=== PATIENT | female | born 1995 | race Caucasian/White ===

== ENCOUNTER → 2022-05-03 11:23 | Outpatient (CLI) | payer BC, SELFPAY ==
[2022-05-03 12:01] LABS: Basophils # 0.2 K/mm3 (0-0.2); Basophils % 2.5 % (0.1-2.0); Eosinophils # 0.1 K/mm3 (0.0-0.4); Eosinophils % 1.4 % (0.1-12.0); Hematocrit 39.7 % (37.0-47.0); Hemoglobin 13.1 g/dL (12.2-16.2); Lymphocytes # 2.2 K/mm3 (0.7-4.5); Lymphocytes % 28.3 % (10-50); Mean Corpuscular HGB Conc 33.1 g/dL (31.8-35.4); Mean Corpuscular Hemoglobin 28.5 pg (27.0-31.2); Mean Corpuscular Volume 86.1 fl (81-99); Mean Platelet Volume 7.8 fl (7.4-10.4); Monocytes # 0.4 K/mm3 (0.1-1.0); Monocytes % 4.7 % (1.7-9.3); Neutrophils # 4.9 K/mm3 (1.8-7.8); Neutrophils % 63.1 % (37.0-80.0); Platelet Count 322 K/mm3 (142-424); Red Blood Count 4.61 M/mm3 (4.20-5.40); Red Cell Distribution Width 13.9 % (11.5-17.5); White Blood Count 7.8 K/mm3 (4.8-10.8)
[2022-05-03 12:25] LABS: HCG,Quantitative 4856 mIU/ml (0-5.42)
[2022-05-04 08:22] LABS: Hepatitis B Surface Antigen Negative (Negative); Hepatitis C Antibody 0.1 s/co ratio (0.0-0.9); Rubella Antibodies, IgG 8.47 index (Immune >0.99)
[2022-05-04 09:14] LABS: HIV Screen 4th Generation wRfx Non Reactive (Non Reactive)
[2022-05-04 13:12] LABS: Rapid Plasma Reagin Ab Titer Non Reactive (NonRea<1:1)
== END ==
PROVIDERS: PCP Family Medicine; Visit Provider Obstetrics & Gynecology
DX: Z34.90 Encounter for supervision of normal pregnancy, unspecified, unspecified trimester (principal)
CPT/HCPCS: 36415; 84702; 85025; 86592; 86703; 86762; 86850; 87340; 87380; G0432

== ENCOUNTER → 2022-05-10 12:56 | Outpatient (CLI) | payer BC, SELFPAY ==
[2022-05-10 15:42] LABS: HCG,Quantitative 30030 mIU/ml (0-5.42)
== END ==
PROVIDERS: PCP Family Medicine; Visit Provider Obstetrics & Gynecology
DX: Z34.90 Encounter for supervision of normal pregnancy, unspecified, unspecified trimester (principal)
CPT/HCPCS: 36415; 84702

== ENCOUNTER → 2022-05-17 12:50 | Outpatient (CLI) | payer BC, SELFPAY ==
--- NOTE | 2022-05-17 12:50 | US_ITS ---
FINAL REPORT CLINICAL HISTORY: dates FINDINGS: Sonographic images of the pelvis were obtained. A single, living intrauterine is noted. A yolk sac is present and measures 0.53 cm. [place] to rump length measures 1.04 cm which corresponds to 7 weeks 1 day gestation. Heartbeat is identified and measures 136 beats per minute. The right ovary is within normal limits. There is a left ovarian cyst. IMPRESSION: Single, living, intrauterine gestation with 7 weeks 1 day ultrasound age. Reviewed, Interpreted and Dictated by Nico Marx III, MD Transcribed by Mercy Wilder Authenticated and [facility]
== END ==
PROVIDERS: PCP Family Medicine; Visit Provider Obstetrics & Gynecology
DX: Z34.90 Encounter for supervision of normal pregnancy, unspecified, unspecified trimester (principal)
CPT/HCPCS: 76801

== ENCOUNTER 2022-06-21 11:47 | Emergency (ER) | payer BC, SELFPAY ==
[2022-06-21 12:12] VITALS: BP 101/56; PULSE 68; RESP 17; TEMP 36.7; O2SAT 98; BMI 32.9
--- NOTE | 2022-06-21 12:23 | HMH.EDUTC ---
[facility] Disposition Clinical Impression: Headache above the eye region Disposition: Home, Self-Care Condition on Discharge: Good Instructions: DI for Headache Additional Instructions: Have eye exam to make sure that you have not had any vision changes FOllow up with your OB for further treatment and evaluation Return if needed Straight to ER if any life threatening symptoms or worse headache of your life Referrals: Provider,Referral, [Primary Care Provider] - As needed Time of Disposition: 12:39 Medical Decision Making - Lamont Inquiry Pt receiving controlled substance: No Lamont was queried for this patient: No Vital Signs: 06/21/22 12:12 Temperature 98.1 F Temperature Source Oral Pulse Rate [Left] 68 Respiratory Rate 17 Blood Pressure [Right Arm] 101/56 L Blood Pressure Mean [Right Arm] 71 02 Sat by Pulse Oximetry 98 Medical Decision Narrative: Patient states that she has appointment with OBGYN this week but wanted to get her Vitals checked to see if her blood pressure could be causing her headaches that come and go Patient unsure of last eye exam Discussed transfer to the ED and she declined Discussed eye exam to rule out changes in vision that could cause headaches and patient agreed Patient states that she will continue to drink fluids to make sure that she is staying hydrated an schedule vision exam and follow up with her OB later this week [facility] HPI - General Stated complaint: ongoing BULLARD, nausea Time Seen by Provider: 06/21/22 12:24 Mode of Arrival: Ambulatory Source of Information: Patient Limitations: No Limitations Description of Symptoms (Recalled from Triage Doc. by RN): patient comes in for headache since 06/18. located on left hand side of head, into neck and behind left eye. patient is 12 weeks . tylenol has not helped. HEENT Symptoms (Recalled from RN notes): Yes Resp Symptoms (Recalled from RN notes): No Skin Symptoms (Recalled from RN notes): No MS Symptoms (Recalled from RN notes): No Functional Status (Recalled from RN notes): n/a - History of Present Illness Provider Complaint: Patient states that she has been having headache on and off for over a week States that she has been taking Tylenol and not helping much but will go away and then come back State that pain is on the left side of her head and goes behind ear States that she is 12wks OB States that she called her PCP and they would do tele visit but she wanted to get her vitals checked to make sure that her blood pressure was OK and her OB was out today so she came down here Denies vision disturbances denies worse headache of her life - Related Data Previous Rx's Medication Instructions Recorded ferrous sulfate 325 mg (65 mg 325 mg PO DAILY #30 tab 05/18/22 iron) tablet ondansetron 4 mg disintegrating 4 mg PO Q4H PRN #30 tab 05/18/22 tablet vits no.126-ferrous fum 1 tab PO DAILY #30 tab 05/18/22 28 mg iron-folic acid 800 mcg tablet Allergies Allergy/AdvReac Type Severity Reaction Status Date / Time No Known Allergies Allergy Verified 06/08/22 11:44 - Worker's Comp Is this a Worker's Comp case?: No [facility] History - Hepatitis A Screen Attestation statement:: This patient has been screened for Hepatitis A risk factors. I have reviewed the patient's past medical history: Yes - Social History Smoking Status: Never smoker Alcohol Intake: never Substance Use Type: denies use Occupational Status: unemployed Family Hx:: Heart Attack, Thyroid Disorder ROS Obtained: Yes All systems reviewed & no additional complaints, Yes Systems reviewed as appropriate & no additional complaints - Constitutional Constitutional: Reports system reviewed and no additional complaints, except as docu, Reports headache(s) - Eyes Eyes: Reports system reviewed and no additional complaints, except as docu, Denies blurry vision - ENT Ears, Nose, Mouth, and Throat: Reports system reviewed and no additional
[2022-06-21 12:44] VITALS: BP 101/56; PULSE 68; RESP 17; TEMP 36.7
== END 2022-06-21 12:47 | disposition home or self-care (01) ==
PROVIDERS: Emergency Provider Nurse Practitioner
DX: R51.9 Headache, unspecified (principal)
CPT/HCPCS: 99212; G0463

== ENCOUNTER 2022-07-17 21:25 | Emergency (ER) | payer BC, SELFPAY ==
[2022-07-17 21:25] VITALS: BP 112/69; PULSE 76; RESP 16; TEMP 36.8; O2SAT 100; BMI 32.9
[2022-07-17 22:30] VITALS: BP 112/67; PULSE 83; O2SAT 100
[2022-07-17 22:48] LABS: Basophils # 0.1 K/mm3 (0-0.2); Basophils % 0.8 % (0.1-2.0); Eosinophils # 0.1 K/mm3 (0.0-0.4); Eosinophils % 0.9 % (0.1-12.0); Hematocrit 42.3 % (37.0-47.0); Hemoglobin 12.9 g/dL (12.2-16.2); Lymphocytes # 2.2 K/mm3 (0.7-4.5); Lymphocytes % 20.1 % (10-50); Mean Corpuscular HGB Conc 30.5 g/dL (31.8-35.4); Mean Corpuscular Hemoglobin 28.2 pg (27.0-31.2); Mean Corpuscular Volume 92.4 fl (81-99); Mean Platelet Volume 8.4 fl (7.4-10.4); Monocytes # 0.5 K/mm3 (0.1-1.0); Neutrophils # 7.9 K/mm3 (1.8-7.8); Neutrophils % 73.2 % (37.0-80.0); Platelet Count 286 K/mm3 (142-424); Red Blood Count 4.58 M/mm3 (4.20-5.40); Red Cell Distribution Width 13.4 % (11.5-17.5); White Blood Count 10.8 K/mm3 (4.8-10.8)
--- NOTE | 2022-07-17 22:56 | PC.NURSE ---
FHT 150bpm
[2022-07-17 22:57] LABS: Alanine Aminotransferase 12 U/L (12-78); Albumin/Globulin Ratio 1.2 (1.1-1.8); Alkaline Phosphatase 64 U/L (38-126); Anion Gap 11.8 mEq/L (5-15); Aspartate Amino Transferase 30 U/L (14-36); Bilirubin,Total < 0.1 mg/dl (0.2-1.3); Blood Urea Nitrogen 4 mg/dl (7-17); Calcium 9.8 mg/dl (8.4-10.2); Carbon Dioxide 23 mmol/L (22.0-30.0); Chloride 107 mmol/L (98-107); Creatinine Clearance Estimated 366 mL/min (50-200); Estimated Glomerular Filt Rate 269 ml/min (>60); GFR (African American) 325 ML/MIN (>60); Globulin 3.4 g/dL (1.3-3.2); Glucose 99 mg/dl (74-100); Potassium 3.8 mmoL/L (3.5-5.1); Sodium 138 mmol/L (136-145); Total Protein,Serum 7.4 g/dl (6.3-8.2)
[2022-07-17 23:00] VITALS: BP 101/57; PULSE 72; O2SAT 100
[2022-07-17 23:30] VITALS: BP 109/71; PULSE 69; O2SAT 99
[2022-07-17 23:44] LABS: HCG,Quantitative 21722 mIU/ml (0-5.42)
--- NOTE | 2022-07-18 01:01 | HMH.EDPREG ---
ED Disposition Clinical Impression: Headache Qualifiers: Headache type: unspecified Headache chronicity pattern: acute headache Intractability: not intractable Qualified Code(s): R51.9 - Headache, unspecified Qualifiers: Weeks of gestation: 15 weeks Qualified Code(s): Z3A.15 - 15 weeks gestation of Disposition: Home, Self-Care Condition on Discharge: Good Instructions: DI for Headache Additional Instructions: call ob this am Referrals: Elinor Morgan MD [Primary Care Provider] - Ale Solomon MD [Staff Physician] - - Critical Care Critical Care Time: No Attestation: On 07/17/22, the high probability of a clinically significant, sudden or life threatening deterioration of the following system(s) required my full and direct attention, intervention and personal management. The time I documented below is in addition to time spent performing reported procedures but includes the following listed in this critical care notation. Medical Decision Making - Medical Records Medical records reviewed: Yes: I reviewed the patient's medical records. - Lamont Inquiry Pt receiving controlled substance: No Vital Signs: 07/17/22 21:25 07/17/22 22:30 07/17/22 23:00 Temperature 98.2 F Temperature Source Oral Pulse Rate 83 72 Pulse Rate [Left] 76 Respiratory Rate 16 Blood Pressure 112/67 101/57 L Blood Pressure [Right Arm] 112/69 Blood Pressure Mean [Right Arm] 83 02 Sat by Pulse Oximetry 100 100 100 Oxygen Delivery Method Room Air 07/17/22 23:30 07/18/22 01:16 Temperature 98.9 F Temperature Source Oral Pulse Rate 69 69 Pulse Rate [Left] Respiratory Rate 18 Blood Pressure 109/71 L 109/71 L Blood Pressure [Right Arm] Blood Pressure Mean [Right Arm] 02 Sat by Pulse Oximetry 99 Oxygen Delivery Method Room Air Room Air - Lab Data Lab results reviewed: Yes: I reviewed the patient's lab results. Lab Results 07/17/22 22:15: WBC 10.8, RBC 4.58, Hgb 12.9, Hct 42.3, MCV 92.4, MCH 28.2, MCHC 30.5 L, RDW 13.4, Plt Count 286, MPV 8.4, Neut % (Auto) 73.2, Lymph % (Auto) 20.1, [place] % (Auto) 5.0, Eos % (Auto) 0.9, Baso % (Auto) 0.8, Neut # (Auto) 7.9 H, Lymph # (Auto) 2.2, [place] # (Auto) 0.5, Eos # (Auto) 0.1, Baso # (Auto) 0.1 07/17/22 22:15: Sodium 138, Potassium 3.8, Chloride 107, Carbon Dioxide 23, Anion Gap 11.8, BUN 4 L, Creatinine 0.30 L, Estimated Creat Clear 366 H, Estimated GFR 269, Est GFR ( Amer) 325, Glucose 99, Calcium 9.8, Total Bilirubin < 0.1 L, AST 30, ALT 12, Alkaline Phosphatase 64, Total Protein 7.4, Albumin 4.0, Globulin 3.4 H, Albumin/Globulin Ratio 1.2 07/17/22 22:15: HCG, Quant 10004 H Result diagrams: 07/17/22 22:15 07/17/22 22:15 Orders (Tests/Meds): ED MEDICATIONS Generic Name Dose Route Start Last Admin Trade Name Freq PRN Reason Stop Dose Admin Sodium Chloride 1,000 mls @ 999 mls/hr 07/17/22 22:45 07/17/22 22:54 Sod Chlor 0.9% 1000ml Bag IV 07/17/22 23:45 999 mls/hr .Q1H1M LYNSEY Administration Sodium Chloride 10 ml 07/17/22 22:41 Sodium Chloride 0.9% 10ml Flush Syringe IV 08/16/22 22:40 NEEDED PRN Maintain IV Site Discontinued Medications Generic Name Dose Route Start Last Admin Trade Name Freq PRN Reason Stop Dose Admin Acetaminophen 1,000 mg 07/18/22 00:33 07/18/22 00:40 Acetaminophen 500mg Tab PO 07/18/22 00:34 1,000 mg ONCE ONE Administration Ondansetron HCl 4 mg 07/17/22 22:40 07/17/22 22:54 Ondansetron 4mg/2ml Vial IV 07/17/22 22:41 4 mg ONCE ONE Administration Ondansetron HCl 4 mg 07/18/22 00:39 07/18/22 00:40 Ondansetron 4mg/2ml Vial IV 07/18/22 00:40 4 mg ONCE ONE Administration Medical Decision Narrative: has nonspecific bullard and stable exam at 15 weeks - HPI - General Chief complaint: Headache Stated complaint: 15 wks preg with BULLARD Time Seen by Provider: 07/18/22 01:01 Mode of Arrival: Ambulatory Source of Information: Patient, S
[2022-07-18 01:16] VITALS: BP 109/71; PULSE 69; RESP 18; TEMP 37.2; O2SAT 99
== END 2022-07-18 01:44 | disposition home or self-care (01) ==
PROVIDERS: Emergency Provider Emergency Medicine; PCP Family Medicine
DX: O26.892 Other specified pregnancy related conditions, second trimester (principal); R51.9 Headache, unspecified; Z79.899 Other long term (current) drug therapy; Z3A.15 15 weeks gestation of pregnancy; Z56.0 Unemployment, unspecified; Z82.49 Family history of ischemic heart disease and other diseases of the circulatory system; Z83.49 Family history of other endocrine, nutritional and metabolic diseases
CPT/HCPCS: 80053; 84702; 85025; 96374; 96375; 99284; J2405

== ENCOUNTER → 2022-08-18 12:34 | Outpatient (CLI) | payer BC, SELFPAY ==
--- NOTE | 2022-08-18 12:40 | US_ITS ---
FINAL REPORT CLINICAL HISTORY: 20 week anatomy scan FINDINGS: There is a single live intrauterine gestation. Presentation is breech. The cervix is closed and measures 3.2 cm. Placenta is posterior, grade 1. Cardiac activity is confirmed at 155 bpm. The fetus is active. Three-vessel cord with satisfactory umbilical cord insertion. Four-chamber heart is noted. AMNIOTIC FLUID: Appropriate amount. MEASUREMENTS: ULTRASOUND AGE: 20 weeks 3 days. GESTATION AGE: 20 weeks 5 days. ESTIMATED WEIGHT: 344 g GROWTH PERCENTILE: 24% LMP percentile BPD: 4.9 cm corresponding with 20 weeks 5 days. OFD: 6.0 cm corresponding with 20 weeks 3 days. HC: 17.2 cm corresponding with 19 weeks 6 days. AC: 15.2 cm corresponding with 20 weeks 3 days. FL: 3.3 cm corresponding with 20 weeks 2 days. CEREBELLUM: 2.0 cm corresponding with 20 weeks 4 days. HUMERUS: 3.2 cm corresponding with 20 weeks 5 days. HC/AC: 1.13 CI: 81% FL/BPD: 68% FL/AC: 22% IMPRESSION: Single living IUP with an ultrasound age of 20 weeks 3 days. Reviewed, Interpreted and Dictated by Yaw Roth MD Transcribed by Mercy Wilder Authenticated and [facility]
== END ==
PROVIDERS: PCP Family Medicine; Visit Provider Obstetrics & Gynecology
DX: Z34.90 Encounter for supervision of normal pregnancy, unspecified, unspecified trimester (principal); Z3A.20 20 weeks gestation of pregnancy
CPT/HCPCS: 76811

== ENCOUNTER → 2022-10-31 07:51 | Outpatient (CLI) | payer BC, SELFPAY ==
[2022-10-31 08:16] LABS: Basophils # 0.1 K/mm3 (0-0.2); Basophils % 0.5 % (0.1-2.0); Eosinophils # 0.2 K/mm3 (0.0-0.4); Eosinophils % 1.8 % (0.1-12.0); Hematocrit 31.4 % (37.0-47.0); Hemoglobin 10.5 g/dL (12.2-16.2); Lymphocytes # 2.3 K/mm3 (0.7-4.5); Lymphocytes % 20.6 % (10-50); Mean Corpuscular HGB Conc 33.3 g/dL (31.8-35.4); Mean Corpuscular Hemoglobin 27.5 pg (27.0-31.2); Mean Corpuscular Volume 82.4 fl (81-99); Mean Platelet Volume 8.4 fl (7.4-10.4); Monocytes # 0.5 K/mm3 (0.1-1.0); Monocytes % 4.5 % (1.7-9.3); Neutrophils # 8.2 K/mm3 (1.8-7.8); Neutrophils % 72.6 % (37.0-80.0); Platelet Count 334 K/mm3 (142-424); Red Blood Count 3.81 M/mm3 (4.20-5.40); Red Cell Distribution Width 13.4 % (11.5-17.5); White Blood Count 11.3 K/mm3 (4.8-10.8)
[2022-10-31 08:20] LABS: Glucose,Fasting 83 mg/dl (74-100)
[2022-10-31 09:47] LABS: Glucose 1 Hour 100 mg/dL (74-100)
== END ==
PROVIDERS: Visit Provider Obstetrics & Gynecology
DX: Z34.90 Encounter for supervision of normal pregnancy, unspecified, unspecified trimester (principal)
CPT/HCPCS: 36415; 82951; 85025

== ENCOUNTER → 2022-11-23 09:10 | Outpatient (CLI) | payer BC, SELFPAY ==
--- NOTE | 2022-11-23 09:14 | US_ITS ---
FINAL REPORT CLINICAL HISTORY: lga FINDINGS: There is a single live intrauterine gestation. Presentation is breech. The cervix measures 3.6 cm. Placenta is posterior, grade 2. Heart rate is 142 beats per minute. The fetus is active. AMNIOTIC FLUID: Appropriate amount. CARSON: 15 cm, normal MEASUREMENTS: ULTRASOUND AGE: 35 weeks 0 days. GESTATION AGE: 34 weeks 4 days. ESTIMATED WEIGHT: 2467 g GROWTH PERCENTILE: 46% LMP percentile BPD: 9 is cm corresponding with 36 weeks 3 days. OFD: 11 cm corresponding with 35 weeks 3 days. HC: 31.5 cm corresponding with 35 weeks 3 days. AC: 31 cm corresponding with 35 weeks 0 days. FL: 6.4 cm corresponding with 33 weeks 0 days. HC/AC: 1.02 CI: 82% FL/BPD: 71% FL/AC: 21% IMPRESSION: Single living IUP with an ultrasound age of 35 weeks 0 days. CARSON of 15 cm, normal Reviewed, Interpreted and Dictated by Nico Marx III, MD Transcribed by Mercy Wilder Authenticated and [facility]
== END ==
PROVIDERS: PCP Family Medicine; Visit Provider Obstetrics & Gynecology
DX: O36.60X0 Maternal care for excessive fetal growth, unspecified trimester, not applicable or unspecified (principal)
CPT/HCPCS: 76816

== ENCOUNTER → 2022-12-05 22:24 | Outpatient (CLI) | payer BC, SELFPAY | PROVIDERS: Visit Provider Obstetrics & Gynecology | DX: Z34.90 Encounter for supervision of normal pregnancy, unspecified, unspecified trimester (principal); Z3A.35 35 weeks gestation of pregnancy | CPT/HCPCS: 86403 ==

== ENCOUNTER 2022-12-19 05:08 | Inpatient (IN) | payer BC, SELFPAY ==
[2022-12-19 05:14] VITALS: BMI 37.5
[2022-12-19 05:51] VITALS: BP 121/75; PULSE 83; RESP 18; TEMP 37; O2SAT 99; BMI 37.5
[2022-12-19 05:51] LABS: Coronavirus 19, PCR Not Detected (NotDetected); Influenza A, PCR Not Detected (NotDetected); Influenza B, PCR Not Detected (NotDetected)
[2022-12-19 05:51] LABS: Microscopic, Urine URINE MICROSCOPIC (MICROSCOPIC)
[2022-12-19 05:52] LABS: Appearance,Urine CLEAR (Clear); Bilirubin,Urine Negative (Negative); Blood, Urine Negative (Negative); Color,Urine YELLOW (Yellow); Glucose,Urine (UA) Negative (Negative); Ketones,Urine Negative (Negative); Leukocyte Esterase,Urine 1+ (Negative); Nitrate,Urine Negative (Negative); PH,Urine 6.5 (5.0-8.5); Protein,Urine Negative (Negative); Specific Gravity, Urine 1.015 (1.005-1.030); Urobilinogen,Urine 0.2 EU/dl (0.2)
[2022-12-19 05:54] LABS: Basophils # 0.1 K/mm3 (0-0.2); Basophils % 0.4 % (0.1-2.0); Eosinophils # 0.1 K/mm3 (0.0-0.4); Eosinophils % 1.1 % (0.1-12.0); Hematocrit 28.4 % (37.0-47.0); Hemoglobin 9.3 g/dL (12.2-16.2); Lymphocytes # 2.5 K/mm3 (0.7-4.5); Lymphocytes % 20.5 % (10-50); Mean Corpuscular HGB Conc 32.6 g/dL (31.8-35.4); Mean Corpuscular Hemoglobin 24.5 pg (27.0-31.2); Mean Platelet Volume 8.7 fl (7.4-10.4); Monocytes # 0.5 K/mm3 (0.1-1.0); Monocytes % 4.3 % (1.7-9.3); Neutrophils # 9.1 K/mm3 (1.8-7.8); Neutrophils % 73.7 % (37.0-80.0); Platelet Count 325 K/mm3 (142-424); Red Blood Count 3.79 M/mm3 (4.20-5.40); Red Cell Distribution Width 14.7 % (11.5-17.5); White Blood Count 12.4 K/mm3 (4.8-10.8)
[2022-12-19 06:04] LABS: Benzodiazepines Screen,Urine Negative ng/ml (<200)
[2022-12-19 06:05] LABS: Amphetamine/Metha Screen,Urine Negative ng/ml (<1000); Bacteria,Urine Trace /lpf; Barbiturates Screen,Urine Negative ng/ml (<200)
[2022-12-19 06:06] LABS: Cannabinoid Screen,Urine Positive ng/ml (<50)
[2022-12-19 06:07] LABS: Cocaine Screen,Urine Negative ng/ml (<300); Methadone Screen,Urine Negative ng/ml (<300)
[2022-12-19 06:08] LABS: Opiate Screen,Urine Negative ng/ml (<300)
[2022-12-19 06:09] LABS: Phencyclidine Screen,Urine Negative ng/ml (<25)
--- NOTE | 2022-12-19 07:07 | HMH.PHAINT1 ---
Pharmacy Intervention Comments: MEDICATION RECONCILIATION COMPLETED ON PATIENT USING EXTERNAL FILL HISTORY FROM PHARMACY AND ISABEL REPORT. -LAURIE ALMAZAN, EVETTED
--- NOTE | 2022-12-19 11:01 | EXP.HP ---
History of Present Illness *Admission Date: 12/19/22 *Reason for visit:: Induction of labor *History of present illness: 27 yo @ 38 0 KATHRYN 01/02/23; dating by 12/02 ultrasound Elective induction for decreased movement with history of traumatic vaginal delivery complicated by shoulder dystocia (8# ) care at [facility]-- Dr. Solomon complicated by +UDS (THC) and anemia (Hgb 10.5). She reports use of CBC oil for treatment of anxiety. [facility] Disclaimer: The information contained in this section may have been updated after the patient was seen, as this information can be updated by other users. Medical History History of shoulder dystocia in prior Family History (Updated 12/19/22 @ 05:58 by Virginia Monaco RN) No significant family history Social History (Updated 12/19/22 @ 05:58 by Virginia Monaco RN) Smoking Status: Never smoker alcohol intake: never substance use type: denies use current occupational status: employed Travel in the last 8 weeks: None do you feel safe at home: Yes victim of physical abuse: No victim of emotional abuse: No victim of sexual abuse: No Review of Systems Constitutional Constitutional: Reports system reviewed and no additional complaints, except as documented and Denies headache(s) ENT Ears, Nose, Mouth, and Throat: Denies headache(s) *Genitourinary Genitourinary: Denies abnormal vaginal bleeding *Neurologic Neurologic: Denies headache(s) and Denies other visual disturbances Meds Home Medications and Allergies Home Medications Medication Instructions Recorded Confirmed Type [id number]-[id number]-yoihcfdv 1 cap PO BIDP PRN pain 12/19/22 12/19/22 History 50 mg-300 mg-40 mg capsule (Fioricet) ferrous sulfate 325 mg (65 mg 325 mg PO DAILY Supplement 12/19/22 12/19/22 History iron) tablet vits no.126-ferrous fum 1 tab PO DAILY Supplement 12/19/22 12/19/22 History 28 mg iron-folic acid 800 mcg tablet (Classic ) New Prescriptions to Start Prescriptions: Allergies Allergy/AdvReac Type Severity Reaction Status Date / Time No Known Allergies Allergy Verified 12/12/22 11:35 Exam Data for Last 24 hours Vital signs and Labs for Last 24 Hours: Temp Pulse Resp BP Pulse Ox 98.6 F 83 18 121/75 99 12/19/22 05:51 12/19/22 05:51 12/19/22 05:51 12/19/22 05:51 12/19/22 05:51 Laboratory Results - last 24 hr 12/19/22 05:24: Urine Color Yellow, Urine Appearance Clear, Urine pH 6.5, Ur Specific [place] 1.015, Urine Protein Negative, Urine Glucose (UA) Negative, Urine Ketones Negative, Urine Blood Negative, Urine Nitrate Negative, Urine Bilirubin Negative, Urine Urobilinogen 0.2, Ur Leukocyte Esterase 1+ A, Urine RBC None, Urine WBC 5-10, Ur Squamous Epith Cells 5-10, Urine Bacteria Trace 12/19/22 05:24: Urine Opiates Screen Negative, Urine Methadone Screen Negative, Ur Barbituates Screen Negative, Ur Phencyclidine Scrn Negative, Ur Amphetamines Screen Negative, U Benzodiazepines Scrn Negative, Urine Cocaine Screen Negative, U Marijuana (THC) Screen Positive H 12/19/22 05:26: SARS-CoV-2 (PCR) Not detected, Influenza A Untype (PCR) Not detected, Influenza Type B (PCR) Not detected 12/19/22 05:42: WBC 12.4 H, RBC 3.79 L, Hgb 9.3 L, Hct 28.4 L, MCV 75.0 L, MCH 24.5 L, MCHC 32.6, RDW 14.7, Plt Count 325, MPV 8.7, Neut % (Auto) 73.7, Lymph % (Auto) 20.5, [place] % (Auto) 4.3, Eos % (Auto) 1.1, Baso % (Auto) 0.4, Neut # (Auto) 9.1 H, Lymph # (Auto) 2.5, [place] # (Auto) 0.5, Eos # (Auto) 0.1, Baso # (Auto) 0.1 12/19/22 05:42: Blood Type A Positive, Antibody Screen Negative I & O for Last 24 hours: Intake & Output 12/17/22 12/18/22 12/19/22 12/20/22 11:59 11:59 11:59 11:59 Weight 205 lb Constitutional Constitutional: no acute distress *Routine HEENT Exam Head: Present normocephalic Eye: Absent conjunctival ic
--- NOTE | 2022-12-19 12:05 | P.PN_ITS ---
[facility] Disclaimer: The information contained in this section may have been updated after the patient was seen, as this information can be updated by other users. Medical History History of shoulder dystocia in prior Family History (Updated 12/19/22 @ 05:58 by Virginia Monaco RN) Other No significant family history Social History (Updated 12/19/22 @ 05:58 by Virginia Monaco RN) Smoking Status: Never smoker alcohol intake: never substance use type: denies use current occupational status: employed Travel in the last 8 weeks: None do you feel safe at home: Yes victim of physical abuse: No victim of emotional abuse: No victim of sexual abuse: No [facility] Anesthesia Checklist Patient Identification Patient Identification: Arm Band Structural Data Admitted From: Inpatient Planned Operative Procedure/s: Labor Epidural Consent for Planned Operative Procedure(s) Verified: Yes Verified Documents: Surgical Consent and History and Physical NPO Status Verified Time NPO: 00:00 Additional verifications Anesthesia Reactions: No Airway Assessment C-Spine Mobility Assessed: Yes TMJ Mobility Assessed: Yes Dentition: Good Dentition Neurological Assessment Level of Consciousness: Awake and Alert Anesthesia Plan Anesthesia Risk discussed: Yes Anesthesia Plan: Verified ASA Class: II Anesthesia Type: Epidural
--- NOTE | 2022-12-19 18:11 | EXP.DN ---
Delivery Note Delivery Date:: 12/19/22 Delivery Time:: 17:52 Anesthesia Type: Epidural Was labor medically induced?: Yes Induction method: per pitocin protocol Gestational age (weeks): 38 delivered prior to 39 weeks?: Yes Justification for early elective delivery:: Distress (Decreased movement) Gender: Female at 1 minute: 7 at 5 minutes: 9 Delivery Procedure:: Spontaneous vaginal delivery of live born female infant over intact perineum. Delivery uncomplicated No nuchal cord No shoulder dystocia with delivery Infant placed in [facility] immediately after delivery, with standard nursing assessment performed Apgars: 7 & 9 Placenta spontaneously expressed and examined; noted to be complete/intact. Vulva, vagina, and cervix inspected; right lower vaginal sidewall abrasion but no lacerations present EBL: 400 cc All sponge/needle/instrument counts correct at conclusion of procedure Disposition: mother and infant stable in LDRP in [place] Delivery Description: Spontaneous
[2022-12-19 19:36] VITALS: BP 102/56; PULSE 75; RESP 18; TEMP 36.7; O2SAT 98
[2022-12-20 04:17] VITALS: BP 96/58; PULSE 74; RESP 16; TEMP 36.6; O2SAT 97
[2022-12-20 06:56] LABS: Hematocrit 25.1 % (37.0-47.0); Hemoglobin 8.9 g/dL (12.2-16.2)
[2022-12-20 07:32] VITALS: BP 114/55; PULSE 68; RESP 17; TEMP 37.1; O2SAT 98
--- NOTE | 2022-12-20 12:31 | EXP.ACUTE.PN ---
Subjective *Date: 12/20/22 *Time: 13:16 Interval history: PPD # 1 s/p Feeling well. She is breast feeding. Denies pain. Lochia is appropriate. Voiding without difficulty. Passing flatus. Tolerating regular diet. Denies fever/chills, chest pain and shortness of breath. No headaches, dizziness or lightheadedness. Admits to small amount of lower extremity swelling. Medical Exam Vital signs and Labs for Last 24 Hours: Vital Signs Temp Pulse Resp BP Pulse Ox 12/20/22 07:32 98.7 F 68 17 114/55 L 98 12/20/22 04:17 97.8 F 74 16 96/58 L 97 12/19/22 19:36 98.1 F 75 18 102/56 L 98 Laboratory Results - last 24 hr 12/20/22 06:45: Hgb 8.9 L, Hct 25.1 L I & O for Labs for Last 24 Hours: Intake & Output 12/17/22 12/18/22 12/19/22 12/20/22 23:59 23:59 23:59 23:59 Weight 205 lb Microbiology Reports for the Last 24 Hours: Microbiology 12/19/22 05:24 Urine,Clean Catch Urine Culture - Preliminary NO GROWTH AFTER 24 HOURS Head: Present atraumatic and normocephalic Neck: Present normal inspection and full ROM Respiratory: Present CTA bilaterally and normal respiratory effort Cardiac: Present Reg Rate and Rhythm GI: Present soft; Absent distention or tenderness Comments:: Uterine fundus firm and below umbilicus Rectal (female): Present deferred (female): Present deferred Extremities: Present full ROM and edema (+1 bilateral lower extremity edema); Absent calf tenderness Neuro: Present Grossly Intact, alert, awake, oriented x 3 and moves all extremities Assessment and Plan *Assessment and plan (1) 38 weeks gestation of : Status: Acute Category: Medical Code(s): Z3A.38 - 38 weeks gestation of (2) Status post normal vaginal delivery: Status: Acute Category: Medical (3) Anemia affecting : Status: Acute Category: Medical Code(s): O99.019 - Anemia complicating , unspecified trimester (4) History of shoulder dystocia in prior : Status: Acute Category: Medical Code(s): Z87.59 - Personal history of other complications of , childbirth and the puerperium (5) Anxiety: Status: Acute Category: Medical Code(s): F41.9 - Anxiety disorder, unspecified (6) anemia: Status: Acute Category: Medical Code(s): O90.81 - Anemia of the puerperium Plan Continue routine care Venofer 200 mg IV x 1 dose Encouraged increased ambulation Plan d/c home tomorrow
--- NOTE | 2022-12-20 12:43 | SW/DCPLANNER ---
Addendum entered by Leonarda Gonsalez 12/25/22 13:19: Infant cord screen did result positive for THC. I followed up with Dr Maldonado: she did see /patient this AM and did not express any concerns. I will not report this to Central Intake at this time. I did ask Dr Maldonado to please follow up with me if she has any concerns during follow up appointments. Addendum entered by Leonarda Gonsalez 12/21/22 08:20: 's urine drug screen is negative. Original Note: I received a consult for this patient regarding: THC + on first visit (05/18/22) and at admission for delivery (12/19/22). Infant's urine is still pending at this time and cord screen has been sent off. Patient does admit to using a Delta 8 pen and verbalized she understood this could make her test positive for THC. Infant female (Saniya Conley) was born on 12/19/22. Infant's father (Donna Conley 03/22/97) was present during the time of my visit. Patient, , Donna and other child (Domingo Conley 07/02/19) will reside at [address] [place] [address]. Patient's contact number is [phone]. Patient will follow up regarding WIC but is not interested in HANDS at this time. Patient does have the following items at home: crib, carseat, clothing, diapers and will be breast feeding. Patient is expected to discharge tomorrow 12/21/22 pending no setbacks. Nursing staff stated that patient is appropriate and is not having any signs of scoring at this time. Once infant urine/cord screen results I will follow up.
[2022-12-20 16:10] VITALS: BP 114/63; PULSE 75; RESP 18; TEMP 37.1; O2SAT 100
[2022-12-20 20:49] VITALS: BP 107/67; PULSE 81; RESP 17; TEMP 36.7; O2SAT 97
[2022-12-21 04:35] VITALS: BP 108/58; PULSE 72; RESP 16; TEMP 37; O2SAT 100
--- NOTE | 2022-12-21 13:23 | EXP.DC.SUM ---
General Admission date:: 12/19/22 Discharge date: 12/21/22 HPI HPI HPI: 27 yo @ 38 0 KATHRYN 01/02/23; dating by 12/02 ultrasound Elective induction for decreased movement with history of traumatic vaginal delivery complicated by shoulder dystocia (8# infant) care at [facility]-- Dr. Solomon complicated by +UDS (THC) and anemia (Hgb 10.5). She reports use of CBC oil for treatment of anxiety. Hospital Course Hospital Course Hospital Course: course uncomplicated She is discharged home on PPD #2 in stable condition She is tolerating a regular diet, ambulating and voiding without difficulty Lochia is appropriate and she is asymptomatic with [id number] anemia Hgb 8.9 on PPD #1 (9.3 at admission) Exam Data for Last 24 hours Vital signs and Labs for Last 24 Hours: Temp Pulse Resp BP Pulse Ox 98.6 F 72 16 108/58 L 100 12/21/22 04:35 12/21/22 04:35 12/21/22 04:35 12/21/22 04:35 12/21/22 04:35 I & O for Last 24 hours: Intake & Output 12/19/22 12/20/22 12/21/22 12/22/22 11:59 11:59 11:59 11:59 Weight 205 lb Microbiology Reports for the Last 24 Hours: Microbiology 12/19/22 05:24 Urine,Clean Catch Urine Culture - Final NO GROWTH AFTER 48 HOURS DS: Diagnosis Discharge Diagnosis (1) 38 weeks gestation of : Status: Acute (2) Status post normal vaginal delivery: Status: Acute (3) Anemia affecting : Status: Acute (4) History of shoulder dystocia in prior : Status: Acute (5) Anxiety: Status: Acute (6) anemia: Status: Acute Meds Home Medications and Allergies Home Medications Medication Instructions Recorded Confirmed Type bwqseojhyt-mgdmupmwepvpr-cpsvijfo 1 cap PO BIDP PRN pain 12/19/22 12/19/22 History 50 mg-300 mg-40 mg capsule (Fioricet) ferrous sulfate 325 mg (65 mg 325 mg PO DAILY Supplement 12/19/22 12/19/22 History iron) tablet vits no.126-ferrous fum 1 tab PO DAILY Supplement 12/19/22 12/19/22 History 28 mg iron-folic acid 800 mcg tablet (Classic ) ibuprofen 400 mg tablet 800 mg PO Q6HP PRN MILD-MODERATE 12/21/22 Rx PAIN #40 tabs New Prescriptions to Start Prescriptions: ibuprofen Ale Solomon Allergies Allergy/AdvReac Type Severity Reaction Status Date / Time No Known Allergies Allergy Verified 12/12/22 11:35 Discharge Plan Disposition Patient Disposition: Home, Self-Care Condition: Good Discharge Order Discharge Orders: Discharge Order (Routine); Ordered 12/21/22 Ordered By: Ale Solomon Follow up Plan Follow up with: Ale Solomon MD [Staff Physician] - 01/02/23 10:45 am Prescriptions/Medication Reconciliation: New ibuprofen 400 mg Tablet 800 mg PO Q6HP PRN (Reason: MILD-MODERATE PAIN) Qty: 40 0RF Continued ferrous sulfate 325 mg (65 mg iron) tablet 325 mg PO DAILY Classic 28 mg iron- 800 mcg tablet 1 tab PO DAILY yrlpjmlfev-icdsfdffmvpew-icec [Fioricet] 50-300-40 mg capsule 1 cap PO BIDP PRN (Reason: pain) Problem Reconciliation Problems Reviewed?: Yes Patient Discharge Instructions ACTIVITY: Limited activity DIET: regular diet Additional Instructions: Nothing in the vagina for 6 weeks. Drink plenty of fluids. No strenuous activity or heavy lifting for 6-8 weeks. No tub baths for 6 weeks. Patient Instructions: Depression, Hemorrhage, DI for Labor and Delivery, Vaginal , DI for Pre-eclampsia, Catheter-associated Urinary Tract Infection, [facility] Post Discharge Instructions Providers Primary Care Provider: Elinor Morgan Admit Provider: Ale Solomon Attending Provider: Ale Solomon
== END 2022-12-21 14:25 | disposition home or self-care (01) | DRG 807 ==
PROVIDERS: Admitting Provider Obstetrics & Gynecology; PCP Family Medicine; Visit Provider Obstetrics & Gynecology
DX: O99.02 Anemia complicating childbirth (principal); Z37.0 Single live birth; Z3A.38 38 weeks gestation of pregnancy; O99.344 Other mental disorders complicating childbirth; O36.8130 Decreased fetal movements, third trimester, not applicable or unspecified
CPT/HCPCS: 59409; 36415; 59025; 80305; 81001; 85014; 85018; 85025; 86850; 87086; 94761; C1758; C9803; G0283; J1756; J2405; U0003; U0005